=== PATIENT | male | born 1960 | race Caucasian/White ===

== ENCOUNTER 2022-02-16 13:10 | Observation (INO) | payer OTHER ==
[~2022-02-16] VITALS: Ht 172.7 cm; Wt 78.0 kg
[2022-02-16 13:46] LABS: HEMOGLOBIN 13.4 gm/dl (14.0-17.5); RED BLOOD COUNT 4.52 M/UL (4.20-5.50); WHITE BLOOD COUNT 14.6 K/UL (4.5-11.0)
[2022-02-16] MEDS ORDERED: ASPIRIN EC81 MG PO (17:18)
[2022-02-16] MEDS ORDERED: PROAIR HFA8.5 GM INH (17:18)
[2022-02-16] MEDS ORDERED: FAMOTIDINE20 MG PO (17:18)
[2022-02-16] MEDS ORDERED: ALBUTEROL2.5 MG/3 M INH (17:18)
[2022-02-16] MEDS ORDERED: AMLODIPINE BESYL5 MG PO (17:18)
[2022-02-16] MEDS ORDERED: HYDRALAZINE HC100 MG PO (17:19)
[2022-02-16] MEDS ORDERED: ISOSORBIDE MON120 MG PO (17:19)
[2022-02-16] MEDS ORDERED: GABAPENTIN600 MG PO (17:19)
[2022-02-16] MEDS ORDERED: BUPROPION XL150 MG PO (17:19)
[2022-02-16] MEDS ORDERED: CETIRIZINE HCL10 MG PO (17:19)
[2022-02-16] MEDS ORDERED: METOPROLOL TART50 MG PO (17:20)
[2022-02-16] MEDS ORDERED: OMEPRAZOLE40 MG PO (17:20)
[2022-02-16] MEDS ORDERED: OMEGA-3 ACID ETH1 GM PO (17:20)
[2022-02-16] MEDS ORDERED: TAB-A-VITE TA400 MC1 PO (17:20)
[2022-02-16] MEDS ORDERED: LISINOPRIL-HCT1 EAC1 PO (17:21)
[2022-02-16] MEDS ORDERED: PAROXETINE HCL10 MG PO (17:21)
[2022-02-16] MEDS ORDERED: SUCRALFATE1 GM PO (17:21)
[2022-02-16] MEDS ORDERED: SIMVASTATIN10 MG PO (17:21)
[2022-02-16] MEDS ORDERED: FLOMAX 0.4 MG0.4 MG PO (17:21)
[2022-02-16] MEDS ORDERED: HYDROCODON-ACE1 EAC2 PO (17:22)
[2022-02-16 21:30] LABS: ADENOVIRUS F 40/41 Not Detected (Negative); ASTROVIRUS Not Detected (Negative); CAMPYLOBACTER Not Detected (Negative); CRYPTOSPORIDIUM Not Detected (Negative); E.COLI 0157 Not Detected (Negative); ENTAMOEBA HISTOLYTICA Not Detected (Negative); ENTEROAGGREGATIVE E.COLI (EAEC Not Detected (Negative); ENTEROPATHOGENIC E.COLI (EPEC) Not Detected (Negative); ENTEROTOXIGENIC E.COLI (ETEC) Not Detected (Negative); GIARDIA LAMBLIA Not Detected (Negative); NOROVIRUS GI/GII Not Detected (Negative); PLESIOMONAS SHIGELLOIDES Not Detected (Negative); ROTOVIRUS A Not Detected (Negative); SALMONELLA Not Detected (Negative); SAPOVIRUS Not Detected (Negative); SHIG/ENTEROINVAS.ECOLI (EIEC) Not Detected (Negative); SHIGA-LIK TOX.PRO.E.COLI (STEC Not Detected (Negative); VIBRIO Not Detected (Negative); VIBRIO CHOLERAE Not Detected (Negative); YERSINIA ENTEROCOLITICA Not Detected (Negative)
[2022-02-17 02:27] LABS: HEMOGLOBIN 12.4 gm/dl (14.0-17.5); RED BLOOD COUNT 4.09 M/UL (4.20-5.50); WHITE BLOOD COUNT 18.2 K/UL (4.5-11.0)
[2022-02-17 07:52] LABS: CLOSTRIDIUM DIFFICILE TOX A/B Not Detected (Negative)
[2022-02-18 02:27] LABS: RED BLOOD COUNT 3.98 M/UL (4.20-5.50)
[2022-02-18 02:28] LABS: WHITE BLOOD COUNT 12.2 K/UL (4.5-11.0)
[2022-02-18 02:42] LABS: BUN/CREATININE RATIO 19 (0-10)
[2022-02-18] MEDS ORDERED: CEFUROXIME500 MG PO (13:10)
[2022-02-21 16:10] LABS: ORGANISM ID Not indicated. (.); SPECIMEN SOURCE Urine (.); STREPTOCOCCUS PNEUMONIAE AG Negative (Negative)
== END 2022-02-18 13:55 | disposition home or self-care (01) ==
LOC: ER1 13:10 → CDU 15:47 → PROG CARE 15:47 → CDU 15:47 → PROG CARE 02-17 12:04
PROVIDERS: Emergency Medicine; Physician Assistant Medical; ADMIT Internal Medicine
DX: R55 Syncope and collapse (principal); N17.9 Acute kidney failure, unspecified; E86.0 Dehydration; E87.6 Hypokalemia; I12.9 Hypertensive chronic kidney disease with stage 1 through stage 4 chronic kidney disease, or unspecified chronic kidney disease; N18.30 Chronic kidney disease, stage 3 unspecified; I25.10 Atherosclerotic heart disease of native coronary artery without angina pectoris; J44.9 Chronic obstructive pulmonary disease, unspecified; E78.5 Hyperlipidemia, unspecified; D72.829 Elevated white blood cell count, unspecified; K52.9 Noninfective gastroenteritis and colitis, unspecified; Z85.528 Personal history of other malignant neoplasm of kidney; Z82.49 Family history of ischemic heart disease and other diseases of the circulatory system
CPT/HCPCS: ECHO; 36415; 70450; 71045; 80048; 80053; 80307; 81001; 82550; 82553; 83735; 83880; 84484; 85025; 85027; 85379; 85610; 85730; 86140; 87040; 87077; 87081; 87086; 87186; 87278; 87507; 87899; 93005; 93306; 93880; 96361; 96374; 96375; 96376; 99285; G0378; J0696; J2405; J3475; Q9967

== ENCOUNTER → 2022-02-24 | Outpatient (CLI) | payer OTHER ==
[~2022-02-24] MED LIST: ALBUTEROL2.5 MG/3 M INH; AMLODIPINE BESYL5 MG PO; ASPIRIN EC81 MG PO; BUPROPION XL150 MG PO; CEFUROXIME500 MG PO; CETIRIZINE HCL10 MG PO; FAMOTIDINE20 MG PO; FLOMAX 0.4 MG0.4 MG PO; GABAPENTIN600 MG PO; HYDRALAZINE HC100 MG PO; HYDROCODON-ACE1 EAC2 PO; ISOSORBIDE MON120 MG PO; LISINOPRIL-HCT1 EAC1 PO; METOPROLOL TART50 MG PO; OMEGA-3 ACID ETH1 GM PO; OMEPRAZOLE40 MG PO; PAROXETINE HCL10 MG PO; PROAIR HFA8.5 GM INH; SIMVASTATIN10 MG PO; SUCRALFATE1 GM PO; TAB-A-VITE TA400 MC1 PO
== END ==
LOC: HEART 5 11:03
DX: J45.20 Mild intermittent asthma, uncomplicated (principal)
CPT/HCPCS: 94060; 94729

== ENCOUNTER → 2022-03-26 | Outpatient (CLI) | payer OTHER | LOC: EXRD 11:31 | DX: J45.20 Mild intermittent asthma, uncomplicated (principal) | CPT/HCPCS: 71046 ==